=== PATIENT | female | born 1960 | race Caucasian/White ===

== ENCOUNTER 2017-01-14 12:31 | Day surgery (SDC) | payer MEDICAID ==
[~2017-01-14] VITALS: Ht 139.7 cm; Wt 54.0 kg
[2017-01-14 12:20] VITALS: BP 124/71; PULSE 82; RESP 18
[2017-01-14] MEDS ORDERED: LIDOCAINE 2% (SDV) 5 ML INJ ONE (12:33)
[2017-01-14] MEDS ORDERED: PROPOFOL 40 ML ONE (12:33)
[2017-01-14 13:44] VITALS: BP 111/71; PULSE 87; RESP 18
--- NOTE | 2017-01-15 03:59 | GILP ---
DATE OF PROCEDURE: PROCEDURE PERFORMED: Colonoscopy. INDICATION: A 56-year-old female undergoing this procedure for rectal bleeding. 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 The risk of the procedure, related and un related complications, anesthetic risks and alternatives discussed, informed consent was obtained. DESCRIPTION OF PROCEDURE: The patient was brought to the GI lab, sedated by the [employer]CH[employer]. After optima l sedation, scope was passed with much ease into rectum, advanced through sigmoid, descending, trans verse colon all the way into the cecum. Cecum was filled with semi-solid stool could not be removed . Appendix was barely visualized. The digital palpation was positive. While coming out, mucosa th oroughly inspected. Stool was yellowish in color, material was floating around. Multiple sma ll diverticula is seen both in the right and left side of the colon, I would call it as moderate div erticulosis. done in the rectum and internal hemorrhoids identified which is the cause of ble eding. ASSESSMENT: 1. Internal hemorrhoids as the cause of bleeding. 2. Mild diverticulosis. 3. Somewhat poor prep. PLAN: The patient should be on Amitiza. If despite that if she continues to bleed, and then we johnny l use Rectiv cream or hydrocortisone suppository. Dictated By: MICH GAMBINO MD PJ/NTS Conf#: [id number] DID#: [id number] CC: MICH GAMBINO MD; ARSLAN MCDONOUGH MD;*EndCC*
== END 2017-01-14 13:59 | disposition home or self-care (01) ==
LOC: GIL 12:31
PROVIDERS: ATTEND Internal Medicine Gastroenterology
DX: K64.8 Other hemorrhoids (principal); K57.90 Diverticulosis of intestine, part unspecified, without perforation or abscess without bleeding; J45.909 Unspecified asthma, uncomplicated
CPT/HCPCS: 45378; Z7610